=== PATIENT | female | born 2000 | race Caucasian/White ===

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

== ENCOUNTER 2018-03-24 02:49 | Emergency (ER) | payer BC ==
[~2018-03-24] VITALS: Ht 160 cm; Wt 72.0 kg
[~2018-03-24 02:49] MED LIST changes: -BCPILLS PO; +CLC6 PO; +IUD'IUD IU
[2018-03-24 02:52] VITALS: TEMP 36.6; Ht 160 cm; Wt 72.0 kg
--- NOTE | 2018-03-24 03:08 | EMERGENCY ROOM VISIT NOTE ---
History Report prepared by Kirby: Rubens Vaughn Under the Supervision of: Dr. Ok Armstrong M.D. First contact with patient: 02:56 Chief Complaint: CARDIAC ASSESSMENT Stated Complaint: CONSTRICTED CHEST/HEART PROBLEM? History of Present Illness The patient is a 17 year old female who presents to the Emergency Room with complaints of constant chest pain beginning 2-3 hours ago. She currently rates her discomfort a 5/10 in severity. The patient states she went to see a movie and drank a large amount of caffeine. She reports the movie was not scary. The patient notes she was recently evaluated and diagnosed with myocarditis. She states she did not follow-up with a [facility] [employer] [facility] because she is from [place] and her insurance only covers cardiologists on the [facility]. The patient reports she is waiting to hear back from a [employer] because it takes three months to schedule an appointment. She notes she also experienced mild shortness of breath and nausea. The patient states a history of anxiety and Von Willebrand factor. She denies chest tightness, swelling in her feet, vomiting, back pain, taking control, and recent travel. Source of History: patient Onset: 2-3 hours ago Position: chest Symptom Intensity: 5/10 Timing: constant Associated Symptoms: + SOB, + nausea, No vomiting, No back pain Note: Denies: chest tightness, swelling in her feet, recent travel Review of Systems See HPI for pertinent positives & negatives. A total of 10 systems reviewed and were otherwise negative. 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 Status: [employer] student Current/Historical Medications Scheduled Calcium (Calcium), 600 MG PO BID Cholecalciferol (Vitamin D3), 2,000 UNITS PO DAILY Iud's (Paragard Intrauterine System Configuration Specialist), 1 DOSE IU DIRECTED Allergies Coded Allergies: Acetaminophen (Verified Allergy, Severe, SOB-THROAT SWELLS, 03/24/18) Sulfa Antibiotics (Verified Allergy, Severe, SOB-THROAT SWELLS, 03/24/18) Sulfate (Verified Allergy, Severe, SOB-THROAT SWELLS, 03/24/18) NSAIDs (Verified Allergy, Unknown, SEE COMMENT, 03/24/18) PT HAS BLOOD DISORDER AND CAN NOT TAKE ANY FORM OF BLOOD THINER Physical Exam Vital Signs Date Time Temp Pulse Resp B/P (MAP) Pulse Ox O2 Delivery O2 Flow Rate FiO2 03/24/18 05:00 97/57 03/24/18 04:41 63 16 94/56 99 Room Air 03/24/18 03:53 63 17 93/69 99 Room Air 03/24/18 03:03 98 Room Air 03/24/18 03:01 78 03/24/18 02:52 36.6 84 18 113/68 99 Room Air Physical Exam GENERAL: Patient is well appearing and in mild acute distress. EYES: No scleral icterus, unremarkable pupils. ENT: Mucous membranes moist, no nasal congestion. NECK: No masses appreciated, no meningismus, trachea is midline. RESPIRATORY: No dyspnea. Clear to auscultation and equal bilaterally. No wheeze , no rhonchi. CARDIOVASCULAR: Regular rate and rhythm. No murmurs, rubs, gallops appreciated. GASTROINTESTINAL: Abdomen soft, nontender, no peritonitis. Bowel sounds positive. No masses appreciated. BACK: No midline tenderness, no CVA tenderness EXTREMITIES: Normal motion all extremities, no cyanosis, no edema. NEUROLOGIC: Alert and oriented, no acute motor or sensory deficits, no focal weakness, cranial nerves grossly intact. SKIN: No rash, no jaundice, no diaphoresis. Medical Decision & Procedures ER Provider Diagnostic Interpretation: X ray results are stated below per my interpretation: Chest: 1 view: No infiltrate, no effusion, normal cardiac border. Laboratory Results 03/24/18 03:05 Red Blood Count 4.64, Mean Corpuscular Volume 83.2, Mean Corpuscular Hemoglobin 27.8, Mean Corpuscular Hemoglobin Concent 33.4, Mean Platelet Volume 9.6, Neutrophils (%) (Auto) 26.7, Lymphocytes (%) (Auto) 56.3, Monocytes (%) (Auto) 6.0, Eosinophils (%) (Auto) 10.5, Basophils (%) (Auto) 0.5, Neutrophils # (Auto ) 1.54, Lymphocytes # (Auto) 3.26, Monocytes # (Auto) 0.35, Eosinophils # (Auto ) 0.61, Basophils # (Auto) 0.03 03/24/18 03:05 Test 03/24/18 03:05 03/24/18 04:41 White Blood Count 5.79 K/uL (4.8-10.8) Red Blood Count 4.64 M/uL (4.2-5.4) Hemoglobin 12.9 g/dL (12.0-16.0) Hematocrit 38.6 % (37-47) Mean Corpuscular Volume 83.2 fL (80-100) Mean Corpuscular Hemoglobin 27.8 pg (25-34) Mean Corpuscular Hemoglobin Concent 33.4 g/dl (32-36) Platelet Count 257 K/uL (130-400) Mean Platelet Volume 9.6 fL (7.4-10.4) Neutrophils (%) (Auto) 26.7 % Lymphocytes (%) (Auto) 56.3 % Monocytes (%) (Auto) 6.0 % Eosinophils (%) (Auto) 10.5 % Basophils (%) (Auto) 0.5 % Neutrophils # (Auto) 1.54 K/uL (1.4-6.5) Lymphocytes # (Auto) 3.26 K/uL (1.2-3.4) Monocytes # (Auto) 0.35 K/uL (0.11-0.59) Eosinophils # (Auto) 0.61 K/uL (0-0.5) Basophils # (Auto) 0.03 K/uL (0-0.2) RDW Standard Deviation 44.7 fL (36.4-46.3) RDW Coefficient of Variation 14.7 % (11.5-14.5) Immature Granulocyte % (Auto) 0.0 % Immature Granulocyte # (Auto) 0.00 K/uL (0.00-0.02) Erythrocyte Sedimentation Rate 3 mm/hr (0-21) Anion Gap 5.0 mmol/L (3-11) Est Creatinine Clear Calc Drug Dose 114.7 ml/min Estimated GFR () 133.9 Estimated GFR (Non- 115.6 BUN/Creatinine Ratio 4.6 (10-20) Calcium Level 9.0 mg/dl (8.5-10.1) Total Creatine Kinase 77 U/L (26-192) Creatine Kinase MB 0.5 ng/ml (0.5-3.6) Creatine Kinase MB Ratio 0.6 (0-3.0) Troponin I < 0.015 ng/ml (0-0.045) C-Reactive Protein < 0.29 mg/dl (0-0.29) Bedside Troponin I < 0.030 ng/ml (0-0.045) Laboratory results as reviewed by me. ECG Per My Interpretation Indication: chest pain Rate (beats per minute): 71 Rhythm: normal sinus Findings: T-wave inversion (Inferior in lead III), no acute ischemic change, no ectopy, other (QTc of 454) Comparison ECG Date: 12/25/17 Change: no significant change ED Course 0258: The patient was evaluated in room A12B. A complete history and physical exam was performed. 0358: I reevaluated the patient, and she is feeling much better. 0458: Reevaluated the patient. Her troponin level was 0. Discussed results and discharge instructions: she verbalized understanding and agreement. The patient is ready for discharge. Medical Decision Differential: Cardiac Ischemia (STEMI, NSTEMI, Unstable Angina, etc), Aortic Dissection, Arrhythmia, Pulmonary Embolism, Pneumonia, Pneumothorax, MSK, Infectious, Pericarditis/Myocarditis, Esophageal Rupture, Gastrointestinal, amongst other pathologies entertained. 17 yr old female with substernal chest pain over last few hours arrives for evaluation. EKG similar to previous EKG while here in December. 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 She has no evidence of this at this time. She has normal Trop x 2. CRP/ESR unremarkable. Labs look good. CXR clear. No PE risk factors nor symptoms and with normal vitals I do not feel that CT PE imaging indicated at this time. She is feeling better after being here in ED and it seems reasonable dc with plan RTED if worsening or other concerns. Medication Reconcilliation Current Medication List: was personally reviewed by me Blood Pressure Screening Patient's blood pressure: Normal blood pressure Blood pressure disposition: Did not require urgent referral Impression Primary Impression: Substernal chest pain Scribe Attestation The scribe's documentation has been prepared under my direction and personally reviewed by me in its entirety. I confirm that the note above accurately reflects all work, treatment, procedures, and medical decision making performed by me. Departure Information Dispostion Home / Self-Care Referrals No Doctor, Assigned (PCP) Forms IMPORTANT VISIT INFORMATION Patient Instructions My [facility] Additional Instructions We are always here to help. At this time there is no evidence of Myocarditis. If you develop worsening pain, difficulty breathing, passing out/lightheaded, or other concerning symptoms. Use Tylenol and Motrin as needed for discomfort.
[2018-03-24 03:21] LABS: HEMATOCRIT 38.6 % (37-47); HEMOGLOBIN 12.9 g/dL (12.0-16.0); MEAN CELL VOLUME 83.2 fL (80-100); MEAN CORPUSCULAR HEMOGLOBIN 27.8 pg (25-34); MEAN CORPUSCULAR HGB CONC 33.4 g/dl (32-36); MEAN PLATELET VOLUME 9.6 fL (7.4-10.4); PLATELET COUNT 257 K/uL (130-400); RED CELL DISTRIBUTION WIDTH CV 14.7 % (11.5-14.5); RED CELL DISTRIBUTION WIDTH SD 44.7 fL (36.4-46.3); WHITE BLOOD COUNT 5.79 K/uL (4.8-10.8)
[2018-03-24 03:40] LABS: BLOOD UREA NITROGEN 3 mg/dl (7-18); CARBON DIOXIDE 23 mmol/L (21-32); CREATININE 0.75 mg/dl (0.60-1.20); GLUCOSE 98 mg/dl (70-99); POTASSIUM 3.3 mmol/L (3.5-5.1); SODIUM 139 mmol/L (136-145)
[2018-03-24 03:45] LABS: CKMB 0.5 ng/ml (0.5-3.6)
[2018-03-24] MEDS ORDERED: CHOL2000 PO (03:51)
[2018-03-24] MEDS ORDERED: CALC600T37 PO (03:51)
[2018-03-24 04:39] LABS: BASO % 0.5 %; BASO ABS # 0.03 K/uL (0-0.2); EOS % 10.5 %; EOS ABS # 0.61 K/uL (0-0.5); LYMPH % 56.3 %; LYMPH ABS # 3.26 K/uL (1.2-3.4); MONO ABS # 0.35 K/uL (0.11-0.59); NEUT % 26.7 %; NEUT ABS # 1.54 K/uL (1.4-6.5)
[2018-03-24 04:41] VITALS: PULSE 63; O2SAT 99
[2018-03-24 05:00] VITALS: BP 97/57
--- NOTE | 2018-03-24 08:53 | DIAGNOSTIC IMAGING REPORT ---
CHEST ONE VIEW PORTABLE CLINICAL HISTORY: 17 years-old Female presenting with Chest Pain. TECHNIQUE: Portable upright AP view of the chest was obtained. COMPARISON: 12/24/2017. FINDINGS: Cardiomediastinal silhouette normal. No focal opacity. No large effusion or pneumothorax. Osseous structures normal. Upper abdomen normal. IMPRESSION: 1. No acute cardiopulmonary disease. Electronically signed by: Michael Lira M.D. 03/24/2018 8:52 AM Dictated Date/Time: 03/24/2018 8:51 AM
== END 2018-03-24 05:00 | disposition home or self-care (01) ==
LOC: C.EDB 02:51 → C.EDA 05:00
DX: R07.2 Precordial pain (principal); Z86.79 Personal history of other diseases of the circulatory system; Z83.3 Family history of diabetes mellitus; Z82.49 Family history of ischemic heart disease and other diseases of the circulatory system; Z80.7 Family history of other malignant neoplasms of lymphoid, hematopoietic and related tissues; Z79.899 Other long term (current) drug therapy

== ENCOUNTER 2018-03-29 12:53 | Emergency (ER) | payer BC ==
[~2018-03-29] VITALS: Ht 160 cm; Wt 69.0 kg
[~2018-03-29 12:53] MED LIST changes: +CALC600T37 PO; +CHOL2000 PO; -CLC6 PO
[2018-03-29 13:03] VITALS: TEMP 36.8; Ht 160 cm; Wt 69.0 kg
[2018-03-29] MEDS ORDERED: SODIUM CHLORIDE 0.9% 1000ML 1,000 ML IV STA (13:20)
[2018-03-29] MEDS ORDERED: KETOROLAC TROMETHAMINE 30 MG/ML VIAL IV STA (13:20)
--- NOTE | 2018-03-29 13:41 | DIAGNOSTIC IMAGING REPORT ---
CHEST ONE VIEW PORTABLE CLINICAL HISTORY: Chest Pain dyspnea COMPARISON STUDY: 03/24/2018 FINDINGS: The bones soft tissues and hemidiaphragms are normal. The cardiomediastinal silhouette is normal. The lungs are clear. The pulmonary vasculature is normal. IMPRESSION: Negative chest. The above report was generated using voice recognition software. It may contain grammatical, syntax or spelling errors. Electronically signed by: Royer Roman M.D. 03/29/2018 1:40 PM Dictated Date/Time: 03/29/2018 1:40 PM
[2018-03-29 13:52] LABS: BASO % 0.3 %; BASO ABS # 0.02 K/uL (0-0.2); EOS ABS # 0.07 K/uL (0-0.5); HEMOGLOBIN 12.9 g/dL (12.0-16.0); IG# 0.01 K/uL (0.00-0.02); LYMPH % 20.3 %; LYMPH ABS # 1.36 K/uL (1.2-3.4); MEAN CELL VOLUME 82.8 fL (80-100); MEAN CORPUSCULAR HEMOGLOBIN 27.4 pg (25-34); MEAN CORPUSCULAR HGB CONC 33.1 g/dl (32-36); MEAN PLATELET VOLUME 9.7 fL (7.4-10.4); MONO % 3.6 %; MONO ABS # 0.24 K/uL (0.11-0.59); NEUT % 74.7 %; NEUT ABS # 5.01 K/uL (1.4-6.5); PLATELET COUNT 224 K/uL (130-400); RED CELL DISTRIBUTION WIDTH CV 14.5 % (11.5-14.5); RED CELL DISTRIBUTION WIDTH SD 44.3 fL (36.4-46.3); WHITE BLOOD COUNT 6.71 K/uL (4.8-10.8)
[2018-03-29] MEDS ORDERED: [UNRECOGNIZED DRUG - CODE] NAE (13:54)
[2018-03-29] MEDS ORDERED: IBUP1TAB PO (13:56)
[2018-03-29 14:08] LABS: BLOOD UREA NITROGEN 8 mg/dl (7-18); CALCIUM 8.8 mg/dl (8.5-10.1); CARBON DIOXIDE 24 mmol/L (21-32); CREATININE 0.62 mg/dl (0.60-1.20); GLUCOSE 81 mg/dl (70-99); POTASSIUM 3.5 mmol/L (3.5-5.1); SODIUM 140 mmol/L (136-145)
[2018-03-29 14:13] LABS: CKMB < 0.5 ng/ml (0.5-3.6)
[2018-03-29 14:48] VITALS: BP 110/62; PULSE 82; O2SAT 98
--- NOTE | 2018-03-29 17:13 | EMERGENCY ROOM VISIT NOTE ---
History Report prepared by Kirby: Jelani Baker Under the Supervision of: Dr. Matias Ruiz D.O. First contact with patient: 13:11 Chief Complaint: CARDIAC ASSESSMENT Stated Complaint: SHORTNESS OF BREATH,CHEST PAIN History of Present Illness The patient is a 17 year old female who presents to the Emergency Room with complaints of constant chest pain beginning five days ago. She was seen at [facility] today and was referred to the ED. The patient describes her pain as "dull". Her pain is improved with laying flat. Her pain is improved with Motrin. The patient has a history of Von-Willebrand's Disease. She has a history of pericarditis (three months ago). She is a former smoker. Patient denies swelling of calves, recent trips, history of immobilization or recent surgery, prior history of DVT, hemoptysis, history of malignancy, history of smoking, or control/estrogen use. Patient denies diabetes, hypertension, hyperlipidemia, CAD, or history of sudden at a young age. Pt denies headache, change in vision, fevers, shortness of breath, nausea, vomiting, diarrhea, pain with urination, and melena. She notes that she has lost 20 pounds over the past three months, but this is intentional. The patient was seen in the ED five days ago for similar symptoms, and had an normal cardiac work-up. Source of History: patient Onset: Five days ago Position: chest Quality: dull Timing: constant Modifying Factors (Relieving): other (laying flat, Motrin) Associated Symptoms: No fevers, No headache, No SOB, No nausea, No vomiting , No melena, No diarrhea, No urinary symptoms Review of Systems See HPI for pertinent positives & negatives. A total of 10 systems reviewed and were otherwise negative. 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 Status: [employer] student Current/Historical Medications Scheduled Calcium (Calcium), 600 MG PO BID Cholecalciferol (Vitamin D3), 2,000 UNITS PO QAM Desmopressin Acetate (Stimate), 1 SPRAY MARKO UD Ibuprofen-Diphenhydramine Citr (Advil Pm), 1 TAB PO UD Iud's (Paragard Intrauterine Fbi Field Agent), 1 DOSE IU DIRECTED Allergies Coded Allergies: Acetaminophen (Verified Allergy, Severe, SOB-THROAT SWELLS, 03/29/18) Sulfa Antibiotics (Verified Allergy, Severe, SOB-THROAT SWELLS, 03/29/18) Sulfate (Verified Allergy, Severe, SOB-THROAT SWELLS, 03/29/18) NSAIDs (Verified Allergy, Unknown, SEE COMMENT, 03/29/18) PT HAS BLOOD DISORDER AND CAN NOT TAKE ANY FORM OF BLOOD THINER Physical Exam Vital Signs Date Time Temp Pulse Resp B/P (MAP) Pulse Ox O2 Delivery O2 Flow Rate FiO2 03/29/18 14:48 82 16 110/62 98 03/29/18 14:17 76 16 120/79 03/29/18 14:02 77 16 113/76 03/29/18 13:19 106 03/29/18 13:03 36.8 77 20 121/80 96 Room Air Physical Exam GENERAL: Sitting up in bed, alert, well appearing, well nourished, no distress, non-toxic EYE EXAM: normal conjunctiva. OROPHARYNX: no exudate, no erythema, lips, buccal mucosa, and tongue normal and mucous membranes are moist NECK: supple, no nuchal rigidity, no adenopathy, non-tender LUNGS: Clear to auscultation. Normal chest wall mechanics HEART: no murmurs, S1 normal and S2 normal CHEST: Acute reproducible right upper chest wall pain. ABDOMEN: abdomen soft, non-tender, normo-active bowel sounds, no masses, no rebound or guarding. BACK: Back is symmetrical on inspection and there is no deformity, no midline tenderness, no CVA tenderness. SKIN: no rashes and no bruising UPPER EXTREMITIES: upper extremities are grossly normal. Radial pulses equal bilaterally. LOWER EXTREMITIES: Calves are equal bilaterally. NEURO EXAM: Normal sensorium, cranial nerves II-XII grossly intact, normal speech, no gross weakness of arms, no gross weakness of legs. Medical Decision & Procedures ER Provider Diagnostic Interpretation: Radiology results as stated below per my review and the radiologist's interpretation: CHEST ONE VIEW PORTABLE FINDINGS: The bones soft tissues and hemidiaphragms are normal. The cardiomediastinal silhouette is normal. The lungs are clear. The pulmonary vasculature is normal. IMPRESSION: Negative chest. The above report was generated using voice recognition software. It may contain grammatical, syntax or spelling errors. Electronically signed by: Royer Roman M.D. 03/29/2018 1:40 PM Laboratory Results 03/29/18 13:43 Red Blood Count 4.71, Mean Corpuscular Volume 82.8, Mean Corpuscular Hemoglobin 27.4, Mean Corpuscular Hemoglobin Concent 33.1, Mean Platelet Volume 9.7, Neutrophils (%) (Auto) 74.7, Lymphocytes (%) (Auto) 20.3, Monocytes (%) (Auto) 3.6, Eosinophils (%) (Auto) 1.0, Basophils (%) (Auto) 0.3, Neutrophils # (Auto) 5.01, Lymphocytes # (Auto) 1.36, Monocytes # (Auto) 0.24, Eosinophils # (Auto) 0.07, Basophils # (Auto) 0.02 03/29/18 13:43 Test 03/29/18 13:43 White Blood Count 6.71 K/uL (4.8-10.8) Red Blood Count 4.71 M/uL (4.2-5.4) Hemoglobin 12.9 g/dL (12.0-16.0) Hematocrit 39.0 % (37-47) Mean Corpuscular Volume 82.8 fL (80-100) Mean Corpuscular Hemoglobin 27.4 pg (25-34) Mean Corpuscular Hemoglobin Concent 33.1 g/dl (32-36) Platelet Count 224 K/uL (130-400) Mean Platelet Volume 9.7 fL (7.4-10.4) Neutrophils (%) (Auto) 74.7 % Lymphocytes (%) (Auto) 20.3 % Monocytes (%) (Auto) 3.6 % Eosinophils (%) (Auto) 1.0 % Basophils (%) (Auto) 0.3 % Neutrophils # (Auto) 5.01 K/uL (1.4-6.5) Lymphocytes # (Auto) 1.36 K/uL (1.2-3.4) Monocytes # (Auto) 0.24 K/uL (0.11-0.59) Eosinophils # (Auto) 0.07 K/uL (0-0.5) Basophils # (Auto) 0.02 K/uL (0-0.2) RDW Standard Deviation 44.3 fL (36.4-46.3) RDW Coefficient of Variation 14.5 % (11.5-14.5) Immature Granulocyte % (Auto) 0.1 % Immature Granulocyte # (Auto) 0.01 K/uL (0.00-0.02) D-Dimer < 190 ug/L FEU (0-500) Anion Gap 7.0 mmol/L (3-11) Est Creatinine Clear Calc Drug Dose 136.0 ml/min Estimated GFR () > 150.0 Estimated GFR (Non- 130.7 BUN/Creatinine Ratio 12.9 (10-20) Calcium Level 8.8 mg/dl (8.5-10.1) Total Creatine Kinase 51 U/L (26-192) Creatine Kinase MB < 0.5 ng/ml (0.5-3.6) Creatine Kinase MB Ratio (0-3.0) Troponin I < 0.015 ng/ml (0-0.045) Laboratory results per my review. Medications Administered Medications (Trade) Dose Ordered Sig/Chanelle Route Start Time Stop Time Status Last Admin Dose Admin Sodium Chloride 1,000 ml @ 999 mls/hr Q1H1M STAT IV 03/29/18 13:20 03/29/18 14:20 DC 03/29/18 14:01 999 MLS/HR Ketorolac Tromethamine (Toradol Inj) 30 mg NOW STAT IV 03/29/18 13:20 03/29/18 13:22 DC 03/29/18 14:01 30 MG ECG Per My Interpretation Indication: chest pain Rate (beats per minute): 84 Rhythm: sinus rhythm Findings: other (Normal axis. No PVCs. ) ED Course ED COURSE: Vital signs were reviewed and showed normal vitals. The patients medical record was reviewed The above diagnostic studies were performed and reviewed. ED treatments and interventions as stated above. 1315: The patient was evaluated in room B4B. A complete history and physical examination was performed. 1320: Ordered Toradol Inj 30 mg IV, Sodium Chloride 1000 ml @ 999 mls/hr IV. 1440: Upon reevaluation, the patient is resting comfortably. I discussed my findings with the patient and she understands and agrees with the treatment plan. Based on the patients age, coexisting illnesses, exam and lab findings the decision to treat as an outpatient was made. The patient remained stable while under my care. The patient appeared well at the time of discharge. Medical Decision Differential diagnoses includes but is not limited to acute coronary syndrome, myocardial infarction, pericarditis, pulmonary embolus, aortic dissection, pneumonia, pneumothorax, musculoskeletal, shingles, esophageal. Patient is a 17-year-old female who presents the ER for chest pain which is been present since this past Monday. Pain is worsened by palpation. No cardiac or PE risk factors. CBC along with BMP and troponin was negative. D- dimer was negative. EKG was unremarkable. Patient was updated at bedside and discharged to follow-up with PCP as an outpatient. Pain was clearly reproducible on exam along right chest wall. Do favor muscle skeletal. Discussed with Pt concerning signs and symptoms to watch out for. Pt was instructed to follow up with their PCP and discussed with the patient their option to return to the ED at anytime for persistent or worsening symptoms. The appropriate anticipatory guidance and out-patient management, including indications for return to the emergency department, were explained at length to the patient and understood. Medication Reconcilliation Current Medication List: was personally reviewed by me Blood Pressure Screening Patient's blood pressure: Normal blood pressure Blood pressure disposition: Did not require urgent referral Impression Primary Impression: Chest wall pain Scribe Attestation The scribe's documentation has been prepared under my direction and personally reviewed by me in its entirety. I confirm that the note above accurately reflects all work, treatment, procedures, and medical decision making performed by me. Departure Information Dispostion Home / Self-Care Referrals No Doctor, Assigned (PCP) Forms IMPORTANT VISIT INFORMATION Patient Instructions ED Chest Pain [place], My [facility] Additional Instructions Please follow up with your primary care doctor or if you are a student, [facility] with in the next 24 hours. Any worsening of your symptoms, please return to the ED immediately. This includes any fevers greater than 100.4, worsening pain, chest pain, shortness breath, persistent nausea, vomiting, unable to eat or drink, or any other concerning signs or symptoms from your standpoint. Please take Motrin or Tylenol as needed for pain if not allergic.
== END 2018-03-29 14:49 | disposition home or self-care (01) ==
LOC: C.EDB 12:54
DX: R07.89 Other chest pain (principal); D68.0 Von Willebrand disease; I31.9 Disease of pericardium, unspecified; Z87.891 Personal history of nicotine dependence; Z82.49 Family history of ischemic heart disease and other diseases of the circulatory system; Z79.899 Other long term (current) drug therapy; Z88.2 Allergy status to sulfonamides; Z88.8 Allergy status to other drugs, medicaments and biological substances

== ENCOUNTER 2018-03-31 11:45 | Emergency (ER) | payer BC ==
[~2018-03-31] VITALS: Ht 160 cm; Wt 69.5 kg
[~2018-03-31 11:45] MED LIST changes: +IBUP1TAB PO; +[UNRECOGNIZED DRUG - CODE] NAE
[2018-03-31 11:53] VITALS: TEMP 36.9; Ht 160 cm; Wt 69.5 kg
[2018-03-31] MEDS ORDERED: SODIUM CHLORIDE 0.9% 1000ML 1,000 ML IV STA (12:09)
[2018-03-31 12:17] VITALS: O2SAT 98
[2018-03-31] MEDS ORDERED: OPTIRAY 320 IV PRN (12:30)
--- NOTE | 2018-03-31 12:37 | EMERGENCY ROOM VISIT NOTE ---
ED Visit Note First contact with patient: 11:56 CHIEF COMPLAINT: Chest pain HISTORY OF PRESENTING ILLNESS: This is a 17-year-old female who presents emergency department with complaint of chest pain for the past week. This is her third visit to the emergency department for this complaint. She states initially she felt that pain was on the right side of her chest, but now has moved to the left side of her chest and has been more constant and getting worse. She describes the pain as a constant dull ache with occasional sharp stabbing pains. The pain is worse when she takes in a deep breath and worse with certain movements. She states occasionally that the pain will radiate into her left upper back. She reports a history of myocarditis in December of this year, she states that she has been feeling much better since that admission , and she states that this feels like a different pain. She denies any fevers or chills or recent illness. She denies any cough, hemoptysis, or shortness of breath. She denies nausea or vomiting. She has a history of von Willebrand's disease, she states that she only gets factor as needed for any injuries. She denies any trauma to her chest or recent falls. REVIEW OF SYSTEMS: A complete 10 point review of systems was reviewed with the patient with pertinent positives and negatives as per history of present illness. All else were negative. PAST MEDICAL HISTORY: Von Willebrand's disease, myocarditis SOCIAL HISTORY: Lives at home. She denies tobacco use, alcohol or recreational drug use. ALLERGIES: Reviewed in chart. PHYSICAL EXAM: CONSTITUTIONAL: Pleasant and cooperative. No acute distress. Well appearing and well nourished. HEENT: Normocephalic, atraumatic. Pupils equal, round and reactive to light, EOMI. TMs normal. Pharynx normal. NECK: Supple, full active range of motion without discomfort. RESPIRATORY: Clear to auscultation bilaterally with no wheezing, crackles, rhonchi or stridor. Equal expansion bilaterally. CARDIOVASCULAR: Regular rate and rhythm with no murmurs, rubs or gallops. Normal peripheral perfusion. No edema. CHEST WALL: Tenderness to palpation of the left and right anterior chest wall to palpation. No ecchymosis, abrasions, crepitus, or swelling noted. GASTROINTESTINAL: Soft, nontender, nondistended. No palpable masses or HSM. Bowel sounds present in all quadrants. MUSCULOSKELETAL: Full range of motion of all joints without discomfort. No calf swelling or tenderness. INTEGUMENTARY: No rash or other significant dermatologic conditions noted. NEUROLOGIC: Alert and oriented X 4 with normal affect. Normal strength and sensation in all 4 extremities. No focal neurologic deficits noted. Normal speech. Normal gait observed. ED COURSE AND MEDICAL DECISION MAKING: CC: Patient presenting with complaint of chest pain DIFFERENTIAL DIAGNOSIS: Includes, but not limited to chest wall pain, costochondritis, pleurisy, pericarditis, myocarditis, acute myocardial infarction, PE, pneumonia, pleural effusion, among others. INTERPRETATION OF LABS: No leukocytosis, no anemia, no significant electrolyte abnormalities, normal renal function, normal liver enzymes and lipase. Cardiac enzymes are within normal limits. Serum negative. IMAGING: (CHEST FOR PE) ANGIO WITH CT DOSE: 191.94 mGy.cm HISTORY: 17 years-old Female with R/O PE PER VIKAS AGUIRRE PA-C. Acute chest pain TECHNIQUE: Multiple CTA images of the chest were obtained after the intravenous administration of 95 ml Optiray 320. Coronal and sagittal MIPS were obtained from the axial data set and were submitted for review. A dose lowering technique was utilized adhering to the principles of ALARA. COMPARISON: Chest radiograph 03/29/2018 FINDINGS: CTA: Heart is normal in size without pericardial effusion. Thoracic aorta is normal in course and caliber without aneurysm or dissection. Imaged great vessels appear patent. Pulmonary arterial tree is opacified to level of the proximal segmental branches and demonstrates no focal filling defects to suggest pulmonary thromboembolic disease. CT CHEST: No dominant thyroid nodule or pathologic adenopathy. Residual thymic tissue of the anterior mediastinum. No pneumothorax, pleural effusion or pulmonary edema. There is mild dependent subsegmental ground glass opacities suggesting atelectasis. No suspicious pulmonary nodules or masses. Central airways are patent. No acute process of the imaged upper abdomen. Contracted gallbladder. Soft tissues and breast parenchyma appear unremarkable. Bones appear intact. IMPRESSION: No acute intrathoracic abnormality identified, specifically no acute aortic pathology or evidence of pulmonary thromboembolic disease. EKG: Shows normal sinus rhythm with a rate of 68 bpm, no acute ischemic changes noted, no significant changes when compared to previous EKG from 03/29/2018 by my interpretation. MEDICATION RECONCILIATION: I attest that I have personally reviewed the patient 's current medication list. INITIAL VITAL SIGNS REVIEW: I reviewed the patient's initial vital signs and interpret them as follows: T: Afebrile; BP: Normotensive; HR: Within normal limits; RR: Within normal limits; Pulse Ox: Within normal limits on room air. Blood pressure screening: The patient was found to have normal blood pressure on screening and does not require follow-up for repeat blood pressure check. SUMMARY: Patient was evaluated at bedside, history and physical exam performed. Patient is alert and oriented, no acute distress, resting calmly in stretcher. Patient has reproducible chest wall pain in the left and right anterior chest wall. Heart sounds are normal with no murmurs or rubs. Lungs are clear. She does describe a pleuritic type chest pain. Given her history of von Willebrand's disease, I feel PE is less likely. However, she continues to have worsening of her pain. This is the patient's third ED visit for the same complaint. I discussed the option of chest CT to rule out PE and other cardiac pulmonary abnormalities, she agrees and would like to have this performed today. Orders were placed at bedside for labs, serum , IV fluids for hydration , IV Toradol for pain, CT chest to evaluate for PE. Patient discussed with Dr. Hutchinson, who agrees with my assessment and plan. Labs and imaging reviewed as above, findings are unremarkable. Her cardiac enzymes are all within normal limits and there are no findings on her EKG to suggest pericarditis or myocarditis. CT is negative for PE or other abnormality. Given the reproducible nature of the patient's pain and her multiple negative workups over the past week, I feel her symptoms are most consistent with musculoskeletal pain. Patient reassessed multiple times throughout ED stay, patient feels somewhat improved after the IV Toradol. She is comfortable with discharge. Patient was updated on all results and plan for discharge, she was encouraged to follow closely with her primary care provider. She was educated regarding comfort measures and [id number] medications for symptom management at home. Since she is traveling back home to [place] in the next few days, she was also encouraged to follow-up with a local credentials specialist regarding follow-up of her myocarditis. Patient was also given strict return precautions should her symptoms worsen, she verbalized understanding. Patient was discharged home in stable condition and ambulatory. Current/Historical Medications Scheduled Calcium (Calcium), 600 MG PO BID Cholecalciferol (Vitamin D3), 2,000 UNITS PO QAM Desmopressin Acetate (Stimate), 1 SPRAY MARKO UD Ibuprofen-Diphenhydramine Citr (Advil Pm), 1 TAB PO UD Iud's (Paragard Intrauterine Shoe Repair Cobbler), 1 DOSE IU DIRECTED Allergies Coded Allergies: Acetaminophen (Verified Allergy, Severe, SOB-THROAT SWELLS, 03/29/18) Sulfa Antibiotics (Verified Allergy, Severe, SOB-THROAT SWELLS, 03/29/18) Sulfate (Verified Allergy, Severe, SOB-THROAT SWELLS, 03/29/18) NSAIDs (Verified Allergy, Unknown, SEE COMMENT, 03/29/18) PT HAS BLOOD DISORDER AND CAN NOT TAKE ANY FORM OF BLOOD THINER Vital Signs Date Time Temp Pulse Resp B/P (MAP) Pulse Ox O2 Delivery O2 Flow Rate FiO2 03/31/18 15:50 72 20 123/64 100 03/31/18 14:49 73 18 123/64 98 Room Air 03/31/18 12:45 77 03/31/18 12:17 98 Room Air 03/31/18 11:53 36.9 90 16 117/84 98 Room Air Laboratory Results 03/31/18 12:45 Red Blood Count 4.84, Mean Corpuscular Volume 83.1, Mean Corpuscular Hemoglobin 27.9, Mean Corpuscular Hemoglobin Concent 33.6, Mean Platelet Volume 9.6, Neutrophils (%) (Auto) 64.0, Lymphocytes (%) (Auto) 29.5, Monocytes (%) (Auto) 4.0, Eosinophils (%) (Auto) 1.9, Basophils (%) (Auto) 0.4, Neutrophils # (Auto) 3.32, Lymphocytes # (Auto) 1.53, Monocytes # (Auto) 0.21, Eosinophils # (Auto) 0.10, Basophils # (Auto) 0.02 03/31/18 12:45 Test 03/31/18 12:45 White Blood Count 5.19 K/uL (4.8-10.8) Red Blood Count 4.84 M/uL (4.2-5.4) Hemoglobin 13.5 g/dL (12.0-16.0) Hematocrit 40.2 % (37-47) Mean Corpuscular Volume 83.1 fL (80-100) Mean Corpuscular Hemoglobin 27.9 pg (25-34) Mean Corpuscular Hemoglobin Concent 33.6 g/dl (32-36) Platelet Count 222 K/uL (130-400) Mean Platelet Volume 9.6 fL (7.4-10.4) Neutrophils (%) (Auto) 64.0 % Lymphocytes (%) (Auto) 29.5 % Monocytes (%) (Auto) 4.0 % Eosinophils (%) (Auto) 1.9 % Basophils (%) (Auto) 0.4 % Neutrophils # (Auto) 3.32 K/uL (1.4-6.5) Lymphocytes # (Auto) 1.53 K/uL (1.2-3.4) Monocytes # (Auto) 0.21 K/uL (0.11-0.59) Eosinophils # (Auto) 0.10 K/uL (0-0.5) Basophils # (Auto) 0.02 K/uL (0-0.2) RDW Standard Deviation 44.6 fL (36.4-46.3) RDW Coefficient of Variation 14.6 % (11.5-14.5) Immature Granulocyte % (Auto) 0.2 % Immature Granulocyte # (Auto) 0.01 K/uL (0.00-0.02) Prothrombin Time 11.0 SECONDS (9.0-12.0) Prothromb Time International Ratio 1.0 (0.9-1.1) Activated Partial Thromboplast Time 30.3 SECONDS (21.0-31.0) Partial Thromboplastin Ratio 1.2 Anion Gap 6.0 mmol/L (3-11) Est Creatinine Clear Calc Drug Dose 141.0 ml/min Estimated GFR () > 150.0 Estimated GFR (Non- 132.1 BUN/Creatinine Ratio 12.0 (10-20) Calcium Level 9.2 mg/dl (8.5-10.1) Total Bilirubin 0.4 mg/dl (0.2-1) Direct Bilirubin 0.1 mg/dl (0-0.2) Aspartate Amino Transf (AST/SGOT) 14 U/L (15-37) Alanine Aminotransferase (ALT/SGPT) 22 U/L (12-78) Alkaline Phosphatase 96 U/L (45-117) Total Creatine Kinase 39 U/L (26-192) Creatine Kinase MB < 0.5 ng/ml (0.5-3.6) Creatine Kinase MB Ratio (0-3.0) Troponin I < 0.015 ng/ml (0-0.045) Total Protein 8.0 gm/dl (6.4-8.2) Albumin 4.2 gm/dl (3.4-5.0) Lipase 55 U/L (73-393) Human Chorionic Gonadotropin, Qual NEG (NEG) Medications Administered Medications (Trade) Dose Ordered Sig/Chanelle Route Start Time Stop Time Status Last Admin Dose Admin Sodium Chloride 1,000 ml @ 999 mls/hr Q1H1M STAT IV 03/31/18 12:09 03/31/18 13:09 DC 03/31/18 12:56 999 MLS/HR Departure Information Impression Primary Impression: Chest wall pain Dispostion Home / Self-Care Condition GOOD Referrals No Doctor, Assigned (PCP) Patient Instructions ED Chest Pain Al[facility], [facility] Additional Instructions You have been treated in the Emergency Department for your chest pain. Laboratory results and imaging studies have ruled out any emergent causes for your symptoms which would warrant admission or surgery. For pain control, you can use the following vkyz-[id number] medicines (if >12 yo): - Regular strength (325mg/tab) Tylenol (acetaminophen) 2 tabs every 4-6 hours as needed. Do not exceed 10 tablets in a 24 hour period. Avoid taking more than 3000 mg of Tylenol per day. This includes any other sources of acetaminophen you may take on a regular basis. - Regular strength (200 mg/tab) Advil (ibuprofen) 3 tabs every 6-8 hours as needed. Do not exceed a dose of 2400 mg per day. Alternate ice and heating pad to the area of discomfort to help reduce pain. Drink plenty of fluids to stay well hydrated. As with any trip to the Emergency Department, you should follow-up with your Primary Care Provider from today's visit. Return to the emergency department for severe worsening chest pain, difficulty breathing or inability to catch your breath, severe nausea/vomiting or vomiting blood, fevers > 101.5, severe dizziness or passing out, or any other concerns.
[2018-03-31 12:52] LABS: BASO % 0.4 %; BASO ABS # 0.02 K/uL (0-0.2); EOS % 1.9 %; HEMATOCRIT 40.2 % (37-47); HEMOGLOBIN 13.5 g/dL (12.0-16.0); IG# 0.01 K/uL (0.00-0.02); LYMPH % 29.5 %; LYMPH ABS # 1.53 K/uL (1.2-3.4); MEAN CELL VOLUME 83.1 fL (80-100); MEAN CORPUSCULAR HEMOGLOBIN 27.9 pg (25-34); MEAN CORPUSCULAR HGB CONC 33.6 g/dl (32-36); MEAN PLATELET VOLUME 9.6 fL (7.4-10.4); MONO ABS # 0.21 K/uL (0.11-0.59); NEUT ABS # 3.32 K/uL (1.4-6.5); PLATELET COUNT 222 K/uL (130-400); RED CELL DISTRIBUTION WIDTH CV 14.6 % (11.5-14.5); RED CELL DISTRIBUTION WIDTH SD 44.6 fL (36.4-46.3); WHITE BLOOD COUNT 5.19 K/uL (4.8-10.8)
[2018-03-31 13:03] LABS: PTT PATIENT 30.3 SECONDS (21.0-31.0)
[2018-03-31 13:15] LABS: ALBUMIN 4.2 gm/dl (3.4-5.0); ALT/SGPT 22 U/L (12-78); AST/SGOT 14 U/L (15-37); BLOOD UREA NITROGEN 7 mg/dl (7-18); CALCIUM 9.2 mg/dl (8.5-10.1); CARBON DIOXIDE 24 mmol/L (21-32); GLUCOSE 81 mg/dl (70-99); LIPASE 55 U/L (73-393); POTASSIUM 3.9 mmol/L (3.5-5.1); SODIUM 138 mmol/L (136-145)
[2018-03-31 13:20] LABS: ALKALINE PHOSPHATASE 96 U/L (45-117); CKMB < 0.5 ng/ml (0.5-3.6)
--- NOTE | 2018-03-31 15:04 | DIAGNOSTIC IMAGING REPORT ---
(CHEST FOR PE) ANGIO WITH CT DOSE: 191.94 mGy.cm HISTORY: 17 years-old Female with R/O PE PER VIKAS AGUIRRE PA-C. Acute chest pain TECHNIQUE: Multiple CTA images of the chest were obtained after the intravenous administration of 95 ml Optiray 320. Coronal and sagittal MIPS were obtained from the axial data set and were submitted for review. A dose lowering technique was utilized adhering to the principles of ALARA. COMPARISON: Chest radiograph 03/29/2018 FINDINGS: CTA: Heart is normal in size without pericardial effusion. Thoracic aorta is normal in course and caliber without aneurysm or dissection. Imaged great vessels appear patent. Pulmonary arterial tree is opacified to level of the proximal segmental branches and demonstrates no focal filling defects to suggest pulmonary thromboembolic disease. CT CHEST: No dominant thyroid nodule or pathologic adenopathy. Residual thymic tissue of the anterior mediastinum. No pneumothorax, pleural effusion or pulmonary edema. There is mild dependent subsegmental ground glass opacities suggesting atelectasis. No suspicious pulmonary nodules or masses. Central airways are patent. No acute process of the imaged upper abdomen. Contracted gallbladder. Soft tissues and breast parenchyma appear unremarkable. Bones appear intact. IMPRESSION: No acute intrathoracic abnormality identified, specifically no acute aortic pathology or evidence of pulmonary thromboembolic disease. The above report was generated using voice recognition software. It may contain grammatical, syntax or spelling errors. Electronically signed by: Deyvi Mcqueen M.D. 03/31/2018 3:02 PM Dictated Date/Time: 03/31/2018 2:59 PM
[2018-03-31 15:50] VITALS: BP 123/64; PULSE 72; O2SAT 100
== END 2018-03-31 15:51 | disposition home or self-care (01) ==
LOC: C.EDB 11:46
DX: R07.89 Other chest pain (principal); D68.0 Von Willebrand disease; Z97.5 Presence of (intrauterine) contraceptive device; Z79.899 Other long term (current) drug therapy; Z88.6 Allergy status to analgesic agent; Z88.2 Allergy status to sulfonamides; Z88.8 Allergy status to other drugs, medicaments and biological substances